=== PATIENT | male | born 1960 | race Caucasian/White ===

== ENCOUNTER 2025-06-27 20:35 | Emergency (ER) | payer OTHER, SELFPAY ==
[2025-06-27 20:44] VITALS: BP 151/78; BMI 23.9
[2025-06-27 20:57] VITALS: BP 143/75
[2025-06-27 21:00] VITALS: BP 143/75
[2025-06-27 21:26] LABS: Urine Character Clear (Clear)
[2025-06-27 21:31] LABS: Hematocrit 36.9 % (39.0-52.0); Hemoglobin 12.9 g/dL (13.0-18.0); Mean Corp Hgb Conc. 35.0 g/dL (33.0-37.0); Mean Corpuscular Volume 93.2 fL (80.0-94.0); Nucleated Red Blood Cells % 0 % (-); Platelet Count 133 10^3/uL (130-400); Red Cell Dist. Width 12.1 % (11.5-14.5)
[2025-06-27 21:41] LABS: Urine Red Blood Cell 0-2 /HPF (0-2); Urine Squamous Cell 0-2 /LPF (Few); Urine White Cell 0-2 /HPF (0-5)
[2025-06-27] MEDS: VERSED 2 MG IV (21:52)
[2025-06-27 21:58] LABS: ALT (SGPT) 60 U/L (0-50); AST (SGOT) 50 U/L (17-59); Albumin 4.5 g/dl (3.5-5.0); Alkaline Phosphatase 81 U/L (38-126); Blood Urea Nitrogen 13 mg/dl (9-20); Calcium 8.7 mg/dl (8.4-10.2); Carbon Dioxide 24 mmol/L (22-30); Chloride 108 mmol/L (98-107); Estimated Creatinine Clearance 104 ml/min; Glucose 231 mg/dl (70-99); Potassium 4.3 mmol/L (3.5-5.1); Sodium 143 mmol/L (135-145); Total Protein 6.9 g/dl (6.3-8.2); eGFR > 60.00
[2025-06-27 22:00] VITALS: BP 126/57
[2025-06-27 23:00] VITALS: BP 143/74
[2025-06-28] VITALS: BP 133/63
[2025-06-28] MEDS: HALDOL 5 MG IM (00:11)
[2025-06-28 01:00] VITALS: BP 158/69
[2025-06-28 02:02] VITALS: BP 143/127
--- NOTE | 2025-06-28 02:10 | ED.GENMED ---
History of Present Illness
<Chava Flanagan DO - Last Filed: 06/28/25 02:16>
General
Chief Complaint: Change in Mental Status
Source: patient
Time Seen by Provider: 06/27/25 20:40
History of Present Illness
History of Present Illness:
Note:
CHIEF COMPLAINT(S)
Unresponsiveness, suspected seizure, and nose injury.
HISTORY OF PRESENT ILLNESS
The patient is a 65-year-old male with a history of seizures who was found unresponsive at home. There was no witness to the event; however, he exhibited nasal incontinence, which may indicate a possible seizure event. The patient has a nose injury,
observed as bleeding, but the cause was not confirmed, although it may be associated with a fall. The patient denied having a seizure but admitted to consuming alcohol, stating, 'Maybe too much.' The patient does not take any medications for
seizures and has a history of prior alcohol consumption.
SOCIAL HISTORY
The patient admits to consuming alcohol, potentially in excessive amounts, which might have contributed to the current condition.
REVIEW OF SYSTEMS
- Neurological: History of seizures.
- Integumentary: Nasal bleeding observed.
- Psychiatric: Cooperative but confused about the current situation.
- Substance Use: Admits to alcohol consumption, with possible excessive intake.
PHYSICAL EXAM
General: Alert but confused about circumstances.
Skin: Warm, dry.
Head: Normocephalic, otherwise atraumatic other than abrasion to the bridge of the nose
Neck: Supple, trachea midline.
Eye, Ears, Nose, Mouth, and Throat: Oral mucosa is moist, no tongue abrasions observed. Abrasion to the bridge of the nose
Cardiovascular: Heart rate regular, no arrhythmias noted.
Respiratory: Respirations are non-labored.
Gastrointestinal: Abdomen nondistended.
Back: Normal range of motion, normal alignment.
Musculoskeletal: Move all extremities without difficulty.
Neurological: Alert and oriented to person. Moving all five extremities well; cranial nerves are intact.
Psychiatric: Somewhat belligerent.
PROBLEM LIST
Acute:
- Suspected seizure event
- Nasal injury with bleeding
- Possible acute alcohol intoxication
Chronic:
- History of seizures
PLAN
- Monitor the patient for further seizure activity.
- Evaluate and treat nasal injury.
- Assess alcohol levels and manage for possible intoxication.
- Consider initiating seizure prophylaxis once the patient is stable if indicated.
- Educate the patient on reducing alcohol intake due to potential interference with seizure control.
DIFFERENTIAL DIAGNOSIS
The Differential Diagnosis includes, in no particular order and is not limited to:
- Seizure disorder
- Alcohol-induced seizure
- Alcohol intoxication
- Epilepsy
- Intracranial hemorrhage or stroke
- Syncope
- Hypoglycemia
- Head trauma due to fall
- Alcohol withdrawal
- Cardiac arrhythmia
CARE-UPDATE
06/28/25 - 01:04
Patient has experienced multiple episodes of agitation, exhibiting aggressive behavior towards staff, necessitating sedation for CT imaging tolerance. Plan to attempt CT imaging again post-sedation while maintaining close observation of the patients
status.
EKG
My independent EKG interpretation is:
- Time of EKG: Not specified
- Rhythm: Normal sinus rhythm
- Heart Rate: 64 bpm
- [place]: Normal
- Notable Intervals: Not specified
- Abnormalities Observed: None, no ST segment changes noted
Disposition:
SUMMARY OF ENCOUNTER
The patient is a 65-year-old male who was brought to the emergency department due to unresponsiveness at home. The patient was found disoriented and exhibited signs consistent with possible alcohol intoxication. Upon evaluation, the patients blood
alcohol level was significantly elevated at 435 mg/dL. Initial laboratory assessments showed mild hyperglycemia with a glucose level of 231 mg/dL, white blood cell count of 12,000 cells/�L, hemoglobin of 9 g/dL, and platelets within normal range.
The patient was uncooperative, yelling and using profanity, which necessitated sedation for his and the staffs safety. A CT of the head was performed, which did not reveal any immediate intracranial hemorrhage per the initial assessment, but the
official radiology interpretation is pending.
DISPOSITION
Anticipated discharge.
ASSESSMENT
The patient is presenting with acute symptoms likely attributable to alcohol intoxication, with secondary considerations for seizure activity, given the history. The elevated alcohol level indicates significant intoxication, and theres a noted
history of seizures, possibly alcohol-induced or idiopathic in nature.
PLAN
Monitor the patient closely for further neurological or withdrawal symptoms and manage alcohol intoxication supportively. Await final CT head reading from radiology. Consider initiating seizure prophylaxis if seizure activity is suspected in
relation to alcohol use or history. Educate the patient on the risks associated with excessive alcohol consumption and the potential for related complications, including taking steps to address alcohol use disorder.
INDEPENDENT REVIEW OF LABS AND INTERPRETATION OF TESTS
My independent review of the laboratory tests shows an elevated blood alcohol level at 435 mg/dL, mild hyperglycemia with a glucose level of 231 mg/dL, white blood cell count of 12,000 cells/�L, and hemoglobin of 9 g/dL with normal platelet count.
My independent CT head interpretation shows no obvious intracranial hemorrhage, pending radiology reading.
PATIENT EDUCATION AND COUNSELING
Counseling provided regarding the dangers of excessive alcohol consumption, the potential for alcohol-induced seizures, and the importance of managing seizure disorders effectively, including reducing alcohol intake.
MEDICAL DECISION MAKING
-Chronic conditions affecting care include a history of seizures and recent alcohol intake. Differential diagnosis includes seizure disorder, alcohol-induced seizure, alcohol intoxication, epilepsy, intracranial hemorrhage or stroke, syncope,
hypoglycemia, head trauma due to fall, alcohol withdrawal, and cardiac arrhythmia.
-Data:
Category 1
The following tests were independently interpreted, including the EKG showing normal sinus rhythm with a heart rate of 64 bpm. My independent interpretation of the CT head shows no obvious intracranial hemorrhage, pending the official radiology
report.
-Risk:
Consideration of Admission/Observation: Escalation of care including admission/observation was considered given the complexity and risk of the patients presenting complaint, exam findings, and/or their underlying comorbidities. However, ultimately,
I feel the patient is safe for outpatient management with close follow-up. Reasoning: Work-up reassuring, does not reveal any acute life/organ-threatening processes, patients symptoms well controlled upon reevaluation, reexamination is reassuring,
vitals are stable, patient agreeable with discharge, reliable for follow-up.
DIAGNOSIS
- Alcohol intoxication (ICD-10: F10.129)
- Suspected seizure disorder (ICD-10: G40.909)
- Nose injury with bleeding (ICD-10: S00.33XA)
<Blu Kebede, DO - Last Filed: 06/28/25 05:59>
General
Exam Limitations: none
Phy Exam
<Chava Flanagan, DO - Last Filed: 06/28/25 02:16>
Physical Exam
Physical Exam:
.
Course
<Chava Flanagan, DO - Last Filed: 06/28/25 02:16>
Orders/Labs/Results
Orders:
Orders
06/27/25 20:47
Electrocardiogram (*1) Urgent
Reason for Study: Other
Other Reason for Exam: change in ms
EKG- Treatment ONCE
06/27/25 20:58
Alcohol Urgent
Complete Blood Count/With Diff Urgent
Comprehensive Metabolic Panel Urgent
06/27/25 21:18
Drug Screen, Urine [Urine Drug Abuse Screen] Urgent
Date Specimen was Collected: 06/27/25
Time Specimen was Collected: 21:40
Urinalysis Reflex To Culture Urgent
Date Specimen was Collected: 06/27/25
Time Specimen was Collected: 21:03
Urine Microscopic Reflex Cult Urgent
06/27/25 21:42
Midazolam HCl [Versed] 2 mg IV NOW STA
06/27/25 21:45
Restraints - Non Violent As Directed
Justification-Patient:: 1-Attempts to remove tube
Restraint Type-: Soft Limb-L&R Wrist/4rail
Apply From (date): 06/27/25
Apply from (time): 21:45
Remove (date): 06/28/25
Remove (time): 23:59
06/28/25
CT Head W/o Iv Contrast Urgent
Reason For Exam: change in MS, ? fall
06/28/25 00:06
Haloperidol Lactate [Haldol] 5 mg IM NOW STA
Abnormal Lab Results
06/27/25 06/27/25
20:58 21:18
WBC 4.7 L 10^3/uL
(4.8-10.8)
RBC 3.96 L 10^6/uL
(4.70-6.10)
Hgb 12.9 L g/dL
(13.0-18.0)
Hct 36.9 L %
(39.0-52.0)
MCH 32.6 H pg
(27.0-31.0)
Absolute Lymphs (auto) 1.0 L 10^3/uL
(1.2-3.4)
Chloride 108 H mmol/L
(98-107)
Glucose 231 H mg/dl
(70-99)
ALT 60 H U/L
(0-50)
Urine Bacteria (Reflex) Few A
(Negative)
Urine Glucose 3+ A
(Negative)
Urine Albumin (Reflex) 1+ A
(Neg - Trace)
Alcohol, Quantitative 435 H* mg/dl
06/27/25 20:58
06/27/25 20:58
Vital Signs
Initial and Last Documented VS:
Initial Vital Signs
Temp Pulse Resp BP Pulse Ox
97.7 F 65 16 151/78 95
06/27/25 20:44 06/27/25 20:44 06/27/25 20:44 06/27/25 20:44 06/27/25 20:44
Last Documented Vital Signs
Temp Pulse Resp BP Pulse Ox
97.7 F 79 19 158/69 95
06/27/25 20:44 06/28/25 01:45 06/28/25 01:45 06/28/25 01:00 06/28/25 02:12
<Blu Kebede, DO - Last Filed: 06/28/25 05:59>
Orders/Labs/Results
Orders:
Orders
06/27/25 20:47
Electrocardiogram (*1) Urgent
Reason for Study: Other
Other Reason for Exam: change in ms
EKG- Treatment ONCE
06/27/25 20:58
Alcohol Urgent
Complete Blood Count/With Diff Urgent
Comprehensive Metabolic Panel Urgent
06/27/25 21:18
Drug Screen, Urine [Urine Drug Abuse Screen] Urgent
Date Specimen was Collected: 06/27/25
Time Specimen was Collected: 21:40
Urinalysis Reflex To Culture Urgent
Date Specimen was Collected: 06/27/25
Time Specimen was Collected: 21:03
Urine Microscopic Reflex Cult Urgent
06/27/25 21:42
Midazolam HCl [Versed] 2 mg IV NOW STA
06/27/25 21:45
Restraints - Non Violent As Directed
Justification-Patient:: 1-Attempts to remove tube
Restraint Type-: Soft Limb-L&R Wrist/4rail
Apply From (date): 06/27/25
Apply from (time): 21:45
Remove (date): 06/28/25
Remove (time): 23:59
06/28/25
CT Head W/o Iv Contrast Urgent
Reason For Exam: change in MS, ? fall
06/28/25 00:06
Haloperidol Lactate [Haldol] 5 mg IM NOW STA
Abnormal Lab Results
06/27/25 06/27/25
20:58 21:18
WBC 4.7 L 10^3/uL
(4.8-10.8)
RBC 3.96 L 10^6/uL
(4.70-6.10)
Hgb 12.9 L g/dL
(13.0-18.0)
Hct 36.9 L %
(39.0-52.0)
MCH 32.6 H pg
(27.0-31.0)
Absolute Lymphs (auto) 1.0 L 10^3/uL
(1.2-3.4)
Chloride 108 H mmol/L
(98-107)
Glucose 231 H mg/dl
(70-99)
ALT 60 H U/L
(0-50)
Urine Bacteria (Reflex) Few A
(Negative)
Urine Glucose 3+ A
(Negative)
Urine Albumin (Reflex) 1+ A
(Neg - Trace)
Alcohol, Quantitative 435 H* mg/dl
06/27/25 20:58
06/27/25 20:58
Vital Signs
Initial and Last Documented VS:
Initial Vital Signs
Temp Pulse Resp BP Pulse Ox
97.7 F 65 16 151/78 95
06/27/25 20:44 06/27/25 20:44 06/27/25 20:44 06/27/25 20:44 06/27/25 20:44
Last Documented Vital Signs
Temp Pulse Resp BP Pulse Ox
97.7 F 79 19 158/69 95
06/27/25 20:44 06/28/25 01:45 06/28/25 01:45 06/28/25 01:00 06/28/25 02:12
<Chava Flanagan, DO - Last Filed: 06/28/25 02:16>
*Pulse Oximetry
SaO2: 95
Oxygen Mode of Delivery: Room air
Patient hypoxic: no
*Critical Care Note
Total Time (30-74mins, 75-104mins- exclusive of procedures): Not Applicable
<Blu Kebede, DO - Last Filed: 06/28/25 05:59>
Update Note
Update Note:
Patient received in signout. Intoxication improved. Stable for discharge with responsible adult. Await ride arrangement.
ED Attending Note
<Chava Flanagan, DO - Last Filed: 06/28/25 02:16>
-
Portions of this chart may have been created with voice recognition software.� Occasional wrong word or��sound alike� substitutions may have occurred due to the inherent limitations of voice recognition software.
Discharge Plan
Departure
Patient Disposition: Home (Routine Discharge)
Date of Disposition: 06/28/25
Time of Disposition: 05:58
Patient with high blood pressure during this ER visit?: Yes
Condition: Good
Discharge Problem:
Alcohol intoxication
Instructions: Alcohol intoxication - ED (DC), BLOOD PRESSURE
Referrals:
Frederick Randhawa DO [Family Provider, Internal Medicine]
Interventions
Interventions:
*Risk Screen - Suicide Last Done: 06/27/25 20:44
*General Assessment Last Done: 06/27/25 20:44
*Neglect/Abuse Screening Last Done: 06/27/25 20:44
*ED- Fall Risk Assessment Last Done: 06/27/25 20:44
*ED COVID-19 Vaccine History Last Done: 06/27/25 20:44
ED- Cardiac Assessment Last Done: 06/27/25 20:55
ED- Neurological Assessment Last Done: 06/27/25 20:55
ED- Pulmonary Assessment Last Done: 06/27/25 20:55
ED Swallowing Screen Last Done: 06/27/25 21:19
Discharge Date and Time
Print Language: [place]
[2025-06-28 03:00] VITALS: BP 159/72
[2025-06-28 05:00] VITALS: BP 150/68
--- NOTE | 2025-06-28 07:21 | EDRN ---
the pt approached this RN at the nurses station and stated, 'I need something to eat I am a diabetic', this RN provided an ED lunch box for the pt with crackers at the pts request and this RN asked the pt if it would be okay if this RN obtained a
blood sugar and the pt stated, 'No i don't need my blood sugar taken i just need food thanks', the pt is sitting on the side of the stretcher eating his food, no s/s of distress, the pt is waiting for his mother to pick him up, will continue to
monitor the pt closely
--- NOTE | 2025-06-28 07:27 | EDRN ---
to add to previous note that was entered, the pt is AAO, able to answer questions appropriately and able to move all extremities, the pt is stable on their feel and there is no c/o lightheadedness, dizziness, or pain, the pt ambulates independently
[2025-06-28 10:07] VITALS: BP 131/86
== END 2025-06-28 10:10 | disposition home or self-care (01) ==
LOC: EMR 20:35
PROVIDERS: EMERGENCY PHYSICIAN Emergency Medicine; FAMILY PHYSICIAN Internal Medicine
DX: F10.129 Alcohol abuse with intoxication, unspecified (principal); Y90.8 Blood alcohol level of 240 mg/100 ml or more; S00.31XA Abrasion of nose, initial encounter; X58.XXXA Exposure to other specified factors, initial encounter; R45.1 Restlessness and agitation
CPT/HCPCS: 96374; 96372; 99284; 70450; 80053; 80306; 81003; 81015; 82077; 85025; 93005